=== PATIENT | male | born 1975 | race Caucasian/White ===

== ENCOUNTER 2023-01-13 08:37 | Emergency (ER) | payer OTHER ==
[2023-01-13] MEDS ORDERED: Sodium Chloride 0.9% 1,000 ML IV ONE ×4 (08:39→11:52)
[2023-01-13] MEDS ORDERED: Ketorolac 30 MG/ML SDV IVPUSH ONE (08:39)
[2023-01-13] MEDS ORDERED: Ondansetron 4 MG/2 ML SDV IVPUSH ONE (09:18)
[2023-01-13] MEDS ORDERED: HYDROmorphone 1 MG/ML Syringe IVPUSH ONE ×2 (09:18→11:51)
[2023-01-13 09:40] LABS: BASOPHILS PERCENT AUTO 0.9 % (0.0-1.0); EOSINOPHILS ABSOLUTE AUTO 0.73 K/uL (0.00-0.45); EOSINOPHILS PERCENT AUTO 6.9 % (0.0-6.0); HEMOGLOBIN 16.7 g/dL (14.0-18.0); IMMATURE GRAN ABSOLUTE AUTO 0.02 K/uL (0.00-0.05); IMMATURE GRAN PERCENT AUTO 0.2 % (0.0-0.4); MEAN CORPUSCULAR HEMOGLOBIN 30.8 pg (28.0-32.0); MEAN CORPUSCULAR HGB CONC 35.5 g/dL (32.0-36.0); MEAN CORPUSCULAR VOLUME 86.7 fL (83.0-99.0); MEAN PLATELET VOLUME 10.1 fL (9.4-12.4); MONOCYTES ABSOLUTE AUTO 1.01 K/uL (0.00-0.80); MONOCYTES PERCENT AUTO 9.6 % (0.0-8.0); NEUTROPHILS ABSOLUTE AUTO 4.91 K/uL (1.80-7.70); NEUTROPHILS PERCENT AUTO 46.4 % (41.0-71.0); PLATELET COUNT,PLT 374 K/uL (150-400); RED BLOOD CELL COUNT 5.42 M/uL (4.52-5.90); WHITE BLOOD CELL COUNT,WBC 10.57 K/uL (3.9-11.3)
[2023-01-13 09:41] LABS: A/G RATIO 1.1 (0.9-1.6); ALBUMIN 3.8 g/dL (3.4-5.0); BILIRUBIN TOTAL 0.5 mg/dL (0.2-1.0); CALCIUM 8.6 mg/dL (8.5-10.1); CARBON DIOXIDE,CO2 29.1 mmol/L (21.0-32.0); CREATININE 1.1 mg/dL (0.8-1.3); EST CRCL DRUG DOSING (CG) 88.42 mL/min; MAGNESIUM 1.8 mg/dL (1.8-2.4); POTASSIUM,K 4.4 mmol/L (3.5-5.1); PROTEIN TOTAL,TP 7.4 g/dL (6.4-8.2)
[2023-01-13] MEDS ORDERED: Acetaminophen/oxyCODONE 325-5 MG Tab PO ONE (10:38)
[2023-01-13 11:38] LABS: APPEARANCE,URINE CLEAR; BILIRUBIN,URINE NEGATIVE (NEGATIVE); COLOR,URINE YELLOW; GLUCOSE,URINE NEGATIVE (NEGATIVE); KETONES,URINE NEGATIVE (NEGATIVE); LEUKOCYTE ESTERASE,URINE NEGATIVE (NEGATIVE); NITRITE,URINE NEGATIVE (NEGATIVE); OCCULT BLOOD,URINE SMALL (NEGATIVE); PH,URINE 5.5 (5.0-8.0); PROTEIN,URINE NEGATIVE (NEGATIVE); UROBILINOGEN,URINE 0.2 EU/dL (<2.0)
[2023-01-13 11:54] LABS: EPITHELIAL CELLS,URINE NOT SEEN (NONE-FEW); WBC,URINE 0-2 (0-5/HPF)
[2023-01-13 11:55] LABS: BACTERIA,URINE FEW (NEGATIVE); MUCUS,URINE LIGHT (NONE-MOD)
== END 2023-01-13 12:53 | disposition home or self-care (01) ==
LOC: MW.ED 08:37
DX: N20.0 Calculus of kidney (principal); Z88.0 Allergy status to penicillin
CPT/HCPCS: 36415; 74176; 80053; 81001; 83690; 83735; 85025; 96361; 96374; 96375; 96376; 99284; A9270; J1170; J1885; J2405; J7030

== ENCOUNTER 2023-09-16 07:17 | Emergency (ER) | payer OTHER ==
[2023-09-16] MEDS: Dexamethasone 4 MG/ML SDV PO ONE (07:41)
== END 2023-09-16 08:53 | disposition home or self-care (01) ==
LOC: MW.ED 07:17
DX: R60.9 Edema, unspecified (principal); Z88.0 Allergy status to penicillin; Z75.8 Other problems related to medical facilities and other health care
CPT/HCPCS: 99283; J8540

== ENCOUNTER 2024-09-15 14:00 | Emergency (ER) | payer OTHER ==
[2024-09-15] MEDS ORDERED: Sodium Chloride 0.9% 10 ML Syringe FLUSH PRN (15:14)
[2024-09-15] MEDS ORDERED: Sodium Chloride 0.9% 2.5 ML Syringe FLUSH PRN (15:14)
[2024-09-15 15:24] LABS: BASOPHILS ABSOLUTE AUTO 0.08 K/uL (0.00-0.20); BASOPHILS PERCENT AUTO 1.1 % (0.0-1.0); EOSINOPHILS ABSOLUTE AUTO 0.54 K/uL (0.00-0.45); EOSINOPHILS PERCENT AUTO 7.3 % (0.0-6.0); IMMATURE GRAN ABSOLUTE AUTO 0.04 K/uL (0.00-0.05); IMMATURE GRAN PERCENT AUTO 0.5 % (0.0-0.4); LYMPHOCYTES ABSOLUTE AUTO 2.38 K/uL (1.00-4.80); LYMPHOCYTES PERCENT AUTO 32.2 % (24.0-44.0); MEAN PLATELET VOLUME 10.3 fL (9.4-12.4); MONOCYTES ABSOLUTE AUTO 0.58 K/uL (0.00-0.80); MONOCYTES PERCENT AUTO 7.8 % (0.0-8.0); NEUTROPHILS ABSOLUTE AUTO 3.77 K/uL (1.80-7.70); NEUTROPHILS PERCENT AUTO 51.1 % (41.0-71.0); NRBC ABSOLUTE 0.00 K/uL (0.00-0.02); NRBC PERCENT 0.0 /100WBC (0.0-0.2); PLATELET COUNT,PLT 311 K/uL (150-400); RED BLOOD CELL COUNT 4.83 M/uL (4.52-5.90); WHITE BLOOD CELL COUNT,WBC 7.39 K/uL (3.9-11.3)
[2024-09-15 15:28] LABS: INR 0.99 (0.86-1.11); PTT,PARTIAL THROMBOPLSTIN TIME 22.8 SEC (23.9-30.7)
[2024-09-15 15:32] LABS: A/G RATIO 1.3 (0.9-1.6); ALANINE AMINOTRANSFERASE,ALT 49.0 IU/L (14-63); BILIRUBIN TOTAL 0.5 mg/dL (0.2-1.0); BLOOD UREA NITROGEN,BUN 10.0 mg/dL (7.0-18.0); CARBON DIOXIDE,CO2 27.8 mmol/L (21.0-32.0); CHLORIDE,CL 103.0 mmol/L (98-107); CREATININE 1.1 mg/dL (0.8-1.3); EST CRCL DRUG DOSING (CG) 87.47 mL/min; GLUCOSE RANDOM 195.0 mg/dL (74-106); POTASSIUM,K 3.8 mmol/L (3.5-5.1); PROTEIN TOTAL,TP 7.2 g/dL (6.4-8.2); SODIUM,NA 141.0 mmol/L (136-148)
[2024-09-15 15:36] LABS: ESTIMATED GFR 83.0 mL/min (>60)
[2024-09-15 15:49] LABS: ASPARTATE AMNIOTRANSFERASE,AST 16.0 IU/L (15-37)
[2024-09-15] MEDS: Iopamidol 755 MG/ML 500 ML Multipack Bottle IVPUSH STA (18:03)
== END 2024-09-15 20:29 | disposition home or self-care (01) ==
LOC: MW.ED 14:00
DX: R42 Dizziness and giddiness (principal); Z88.0 Allergy status to penicillin
CPT/HCPCS: 36415; 70450; 70496; 70498; 71045; 80053; 83735; 84484; 85025; 85610; 85730; 93005; 99284; A9270; Q9967